=== PATIENT | male | born 1960 | race African-American/Black ===

== ENCOUNTER 2017-12-31 11:29 | Inpatient (IN) | payer MEDICAID ==
[~2017-12-31] VITALS: Ht 182.9 cm; Wt 128.7 kg
[~2017-12-31 11:29] MED LIST: AMLO10TA2 PO; AMLO5TAB2 PO; APIX5TAB PO; ASPI-650 PO; ASPI325T80 PO; FURO-93 PO; FURO20TA3 PO; HYDR-3342 PO; HYDR-3343 PO; ISOS60TA36 PO; METO25TA35 PO
[2017-12-31] MEDS ORDERED: FUROSEMIDE 40 MG/4 ML ONE (11:57)
[2017-12-31] MEDS ORDERED: ASPIRIN 81 MG TABLET CHEW ONE (11:58)
[2017-12-31] MEDS ORDERED: LABETALOL 5MG/ML, 20ML ONE (11:58)
[2017-12-31] MEDS ORDERED: SODIUM CHLORIDE FLUSH 10ML SYR IVF ONE (12:00)
[2017-12-31] MEDS ORDERED: FUROSEMIDE 40 MG/4 ML IV ONE (12:00)
[2017-12-31] MEDS ORDERED: ASPIRIN 81 MG TABLET CHEW PO ONE (12:00)
[2017-12-31] MEDS ORDERED: LABETALOL 5MG/ML, 20ML IVPush ONE (12:00)
[2017-12-31] MEDS ORDERED: NITROGLYCERIN OINT 2%, 1GM TP ONE ×2 (12:00→12:23)
[2017-12-31] MEDS ORDERED: APIXABAN 5 MG TABLET ONE (12:24)
[2017-12-31] MEDS ORDERED: APIXABAN 5 MG TABLET PO ONE (12:30)
[2017-12-31 12:33] LABS: BASOPHILS # (AUTO) 0.02 x10^3/uL (0-0.1); BASOPHILS % (AUTO) 0 % (0-1); EOSINOPHILS % (AUTO) 2 % (1-7); LYMPHOCYTES # (AUTO) 0.49 x10^3/uL (1-3.4); LYMPHOCYTES % (AUTO) 8 % (22-44); MD NO; MEAN CORPUSCULAR HGB CONC 32.4 g/dL (33.2-36.2); MEAN CORPUSCULAR VOLUME 83.6 fL (81-97); MEAN PLATELET VOLUME 10.1 fL (7.4-10.4); MONOCYTES # (AUTO) 0.75 x10^3/uL (0.2-0.8); MONOCYTES % (AUTO) 13 % (2-9); NEUTROPHILS % (AUTO) 77 % (42-75); PLATELET COUNT 217 x10^3/uL (130-400); RED BLOOD COUNT 3.52 x10^6/uL (4.38-5.82); RED CELL DISTRIBUTION WIDTH 15.4 % (9.4-14.8)
[2017-12-31 12:39] LABS: INTERNATIONAL NORMALIZED RATIO 1.23 (0.93-1.1); PROTHROMBIN TIME 12.6 Seconds (9.6-11.5)
[2017-12-31 12:44] LABS: ALANINE AMINOTRANSFERASE 35 U/L (12-78); ALBUMIN 3.4 g/dL (3.4-5.0); ANION GAP 11 mmol/L (5-15); CALCIUM 8.6 mg/dL (8.5-10.1); CHLORIDE 111 mmol/L (98-107)
[2017-12-31 12:49] LABS: ALKALINE PHOSPHATASE 87 U/L (45-117); BILIRUBIN,TOTAL 1.4 mg/dL (0.2-1.0); RED BLOOD COUNT 3.52 x10^6/uL (4.38-5.82); TOTAL PROTEIN 7.4 g/dL (6.4-8.2)
[2017-12-31 12:55] LABS: ABSOLUTE RETICS # 0.06 x10^6/uL (0.5-1.5); RETICULOCYTE COUNT % 1.72 % (0.5-1.5); TROPONIN I 0.188 ng/mL (0.000-0.045)
[2017-12-31] MEDS ORDERED: HEPARIN 5,000 UNITS/ML, 1ML SQ SCH (13:30)
[2017-12-31] MEDS ORDERED: ACETAMINOPHEN 325 MG TABLET PO PRN (13:30)
[2017-12-31] MEDS ORDERED: ONDANSETRON 2MG/ML, 2ML IVPush PRN (13:30)
[2017-12-31 14:05] LABS: TROPONIN I 0.212 ng/mL (0.000-0.045)
[2017-12-31 14:11] VITALS: BP 219/134
[2017-12-31] MEDS ORDERED: CARVEDILOL 6.25 MG TABLET ONE (14:58)
[2017-12-31] MEDS: CARVEDILOL 6.25 MG TABLET PO SCH (15:02)
[2017-12-31] MEDS: ISOSORBIDE DINITRATE 20 MG TABLET PO SCH ×2 (15:02→21:09)
[2017-12-31 15:33] VITALS: BP 198/103
[2017-12-31] MEDS ORDERED: ISOSORBIDE DINITRATE 10 MG TABLET PO SCH (16:00)
[2017-12-31] MEDS ORDERED: LABETALOL 5MG/ML, 20ML IVPush PRN (16:30)
[2017-12-31 17:02] VITALS: BP 182/99
[2017-12-31] MEDS: hydrALAzine 20 MG/ML, 1ML IVPush PRN (17:02)
[2017-12-31 17:39] VITALS: BP 169/73
[2017-12-31 19:33] LABS: TROPONIN I 0.202 ng/mL (0.000-0.045)
[2017-12-31 20:16] VITALS: BP 162/85
[2017-12-31] MEDS: APIXABAN 5 MG TABLET PO SCH (21:09)
[2018-01-01] VITALS (9 sets, daily range): BP systolic 147–180; BP diastolic 74–106
[2018-01-01] MEDS: CARVEDILOL 6.25 MG TABLET PO SCH ×2 (05:17→17:08)
[2018-01-01 05:32] LABS: % IRON SATURATION 4 % (20-55); ANION GAP 12 mmol/L (5-15); CALCIUM 8.5 mg/dL (8.5-10.1); CHLORIDE 113 mmol/L (98-107); CREATININE 6.74 mg/dL (0.7-1.3); IRON LEVEL 14 mcg/dL (65-175); TOTAL IRON BINDING CAPACITY 336 mcg/dL (250-450)
[2018-01-01 05:41] LABS: BASOPHILS # (AUTO) 0.04 x10^3/uL (0-0.1); BASOPHILS % (AUTO) 1 % (0-1); EOSINOPHILS # (AUTO) 0.15 x10^3/uL (0-0.4); EOSINOPHILS % (AUTO) 2 % (1-7); LYMPHOCYTES # (AUTO) 0.45 x10^3/uL (1-3.4); LYMPHOCYTES % (AUTO) 6 % (22-44); MD NO; MEAN CORPUSCULAR HEMOGLOBIN 27.2 pg (27.5-34.5); MEAN CORPUSCULAR HGB CONC 32.4 g/dL (33.2-36.2); MEAN CORPUSCULAR VOLUME 84.1 fL (81-97); MEAN PLATELET VOLUME 9.4 fL (7.4-10.4); MONOCYTES % (AUTO) 12 % (2-9); NEUTROPHILS % (AUTO) 79 % (42-75); PLATELET COUNT 222 x10^3/uL (130-400); RED BLOOD COUNT 3.27 x10^6/uL (4.38-5.82); RED CELL DISTRIBUTION WIDTH 15.3 % (9.4-14.8)
[2018-01-01 05:58] LABS: FOLATE LEVEL 11.3 ng/mL (3.1-17.5)
[2018-01-01] MEDS: hydrALAzine 20 MG/ML, 1ML IVPush PRN (06:20)
[2018-01-01] MEDS: ISOSORBIDE DINITRATE 30 MG TABLET PO SCH ×3 (08:38→21:53)
[2018-01-01] MEDS: APIXABAN 5 MG TABLET PO SCH ×2 (08:38→21:53)
[2018-01-01] MEDS ORDERED: FUROSEMIDE 20 MG TABLET PO SCH (09:00)
[2018-01-01] MEDS ORDERED: FERROUS SULFATE 325 MG TABLET PO SCH (10:30)
[2018-01-02] VITALS (8 sets, daily range): BP systolic 128–200; BP diastolic 69–104
[2018-01-02] MEDS: CARVEDILOL 6.25 MG TABLET PO SCH ×2 (05:21→19:29)
[2018-01-02 08:35] LABS: ANION GAP 7 mmol/L (5-15); CALCIUM 8.4 mg/dL (8.5-10.1); CHLORIDE 112 mmol/L (98-107)
[2018-01-02 08:37] LABS: CREATININE 6.59 mg/dL (0.7-1.3)
[2018-01-02] MEDS ORDERED: ISOSORBIDE DINITRATE 20 MG TABLET PO SCH (09:00)
[2018-01-02] MEDS: APIXABAN 5 MG TABLET PO SCH ×2 (09:00→20:45)
[2018-01-02] MEDS ORDERED: FUROSEMIDE 40 MG TABLET PO SCH (09:00)
[2018-01-02] MEDS: TORSEMIDE 20 MG TABLET PO SCH (10:00)
[2018-01-02 11:29] LABS: MICROSCOPIC AUTO
[2018-01-02 11:33] LABS: CULTURE INDICATED? NO
[2018-01-02] MEDS: IRON SUCROSE COMPLEX 100MG/5ML IV SCH (12:12)
[2018-01-02] MEDS ORDERED: COCAINE TOPICAL SOLN 4%, 4ML TP ONE (18:00)
[2018-01-02] MEDS: AMLODIPINE 5 MG TABLET PO SCH (20:46)
[2018-01-02] MEDS: SODIUM CHLORIDE NASAL SPRAY 45ML BOTTLE NAS SCH (22:41)
[2018-01-02] MEDS: hydrALAzine 20 MG/ML, 1ML IVPush PRN (22:52)
[2018-01-03] VITALS (8 sets, daily range): BP systolic 138–181; BP diastolic 73–107
[2018-01-03 04:59] LABS: ALANINE AMINOTRANSFERASE 23 U/L (12-78); ANION GAP 12 mmol/L (5-15); CALCIUM 8.4 mg/dL (8.5-10.1); CHLORIDE 110 mmol/L (98-107); CREATININE 6.66 mg/dL (0.7-1.3)
[2018-01-03 05:01] LABS: ALKALINE PHOSPHATASE 76 U/L (45-117); BILIRUBIN,TOTAL 0.5 mg/dL (0.2-1.0)
[2018-01-03] MEDS: SODIUM CHLORIDE NASAL SPRAY 45ML BOTTLE NAS SCH ×4 (06:06→20:28)
[2018-01-03] MEDS: CARVEDILOL 6.25 MG TABLET PO SCH ×2 (06:06→17:40)
[2018-01-03 06:15] LABS: MEAN CORPUSCULAR HEMOGLOBIN 27.1 pg (27.5-34.5); MEAN CORPUSCULAR HGB CONC 32.5 g/dL (33.2-36.2); MEAN CORPUSCULAR VOLUME 83.4 fL (81-97); MEAN PLATELET VOLUME 9.7 fL (7.4-10.4); PLATELET COUNT 274 x10^3/uL (130-400); RED BLOOD COUNT 3.47 x10^6/uL (4.38-5.82); RED CELL DISTRIBUTION WIDTH 15.1 % (9.4-14.8)
[2018-01-03 06:18] LABS: MD YES
[2018-01-03 06:20] LABS: BAND#(MANUAL) 0.16 x10^3/uL; BANDS%(MANUAL) 2 % (0-7); BASOS#(MANUAL) 0.16 x10^3/uL (0-0.1); BASOS% (MANUAL) 2 % (0-1); EOS#(MANUAL) 0.55 x10^3/uL (0.0-0.4); EOS% (MANUAL) 7 % (1-7); LYMPH#(MANUAL) 1.11 x10^3/uL (1-3.4); LYMPHS% (MANUAL) 14 % (22-44); MONOS#(MANUAL) 0.55 x10^3/uL (0.3-2.7); MONOS% (MANUAL) 7 % (2-9); SEG#(MANUAL) 5.37 x10^3/uL (1.8-6.8); SEGS% (MANUAL) 68 % (42-75)
[2018-01-03 06:21] LABS: <PLATELET ESTIMATE> ADEQUATE; <PLT MORPHOLOGY> NORMAL PLT MORPH; ANISOCYTOSIS 1+; ECHINOCYTES 1+; OVALOCYTES 1+; SCHISTOCYTES 1+
[2018-01-03 06:25] LABS: POLYCHROMASIA 1+
[2018-01-03] MEDS ORDERED: FUROSEMIDE 40 MG TABLET PO SCH (09:00)
[2018-01-03] MEDS ORDERED: CARVEDILOL 6.25 MG TABLET PO SCH (09:30)
[2018-01-03] MEDS: TORSEMIDE 20 MG TABLET PO SCH (09:54)
[2018-01-03] MEDS: APIXABAN 5 MG TABLET PO SCH ×2 (09:54→20:28)
[2018-01-03] MEDS ORDERED: CARVEDILOL 12.5 MG TABLET PO SCH (18:00)
[2018-01-03] MEDS: AMLODIPINE 5 MG TABLET PO SCH (20:28)
[2018-01-04 03:52] VITALS: BP 155/88
[2018-01-04] MEDS: CARVEDILOL 6.25 MG TABLET PO SCH ×2 (06:07→16:36)
[2018-01-04] MEDS: SODIUM CHLORIDE NASAL SPRAY 45ML BOTTLE NAS SCH ×4 (06:07→21:39)
[2018-01-04 07:44] VITALS: BP 153/59
[2018-01-04] MEDS: IRON SUCROSE COMPLEX 100MG/5ML IV SCH (08:49)
[2018-01-04] MEDS: TORSEMIDE 20 MG TABLET PO SCH (08:50)
[2018-01-04] MEDS: APIXABAN 5 MG TABLET PO SCH ×2 (08:50→21:40)
[2018-01-04 09:06] LABS: BASOPHILS # (AUTO) 0.01 x10^3/uL (0-0.1); BASOPHILS % (AUTO) 0 % (0-1); EOSINOPHILS # (AUTO) 0.25 x10^3/uL (0-0.4); EOSINOPHILS % (AUTO) 4 % (1-7); LYMPHOCYTES % (AUTO) 6 % (22-44); MD NO; MEAN CORPUSCULAR HEMOGLOBIN 26.7 pg (27.5-34.5); MEAN CORPUSCULAR HGB CONC 32.1 g/dL (33.2-36.2); MEAN CORPUSCULAR VOLUME 83.3 fL (81-97); MEAN PLATELET VOLUME 9.5 fL (7.4-10.4); MONOCYTES # (AUTO) 1.03 x10^3/uL (0.2-0.8); MONOCYTES % (AUTO) 16 % (2-9); NEUTROPHILS # (AUTO) 4.64 x10^3/uL (1.8-6.8); NEUTROPHILS % (AUTO) 73 % (42-75); PLATELET COUNT 245 x10^3/uL (130-400); RED BLOOD COUNT 3.35 x10^6/uL (4.38-5.82); RED CELL DISTRIBUTION WIDTH 15.9 % (9.4-14.8)
[2018-01-04 09:15] LABS: ALANINE AMINOTRANSFERASE 20 U/L (12-78); ALBUMIN 2.7 g/dL (3.4-5.0); ANION GAP 12 mmol/L (5-15); CALCIUM 8.5 mg/dL (8.5-10.1); CHLORIDE 110 mmol/L (98-107); CREATININE 6.74 mg/dL (0.7-1.3)
[2018-01-04 09:18] LABS: ALKALINE PHOSPHATASE 67 U/L (45-117); BILIRUBIN,TOTAL 0.5 mg/dL (0.2-1.0); TOTAL PROTEIN 6.5 g/dL (6.4-8.2)
[2018-01-04 12:27] VITALS: BP 148/77
[2018-01-04 16:33] VITALS: BP 175/99
[2018-01-04 19:58] VITALS: BP 136/83
[2018-01-04] MEDS: AMLODIPINE 5 MG TABLET PO SCH (21:39)
[2018-01-05 01:22] VITALS: BP 155/77
[2018-01-05] MEDS: SODIUM CHLORIDE NASAL SPRAY 45ML BOTTLE NAS SCH ×2 (06:23→12:02)
[2018-01-05] MEDS: CARVEDILOL 6.25 MG TABLET PO SCH (06:24)
[2018-01-05 07:54] VITALS: BP 153/83
[2018-01-05] MEDS: TORSEMIDE 20 MG TABLET PO SCH (08:53)
[2018-01-05] MEDS: APIXABAN 5 MG TABLET PO SCH (08:54)
[2018-01-05] MEDS ORDERED: HYDR-3343 PO (13:09)
[2018-01-05] MEDS ORDERED: TORS20TA PO (13:09)
[2018-01-05 14:01] VITALS: BP 152/90
== END 2018-01-05 14:56 | disposition home or self-care (01) | DRG 291 ==
LOC: ED 12:41 → EDIP 12:42 → ED 13:11 → 5SO 13:48 → DCLOUNGE 01-05 14:39
PROVIDERS: ADMIT Internal Medicine Pulmonary Disease; ATTEND Internal Medicine Pulmonary Disease
PROC: 2Y41X5Z Packing of Nasal Region using Packing Material (ICD-10-PCS; principal; 2018-01-02)
DX: I13.2 Hypertensive heart and chronic kidney disease with heart failure and with stage 5 chronic kidney disease, or end stage renal disease (principal); E43 Unspecified severe protein-calorie malnutrition; N17.9 Acute kidney failure, unspecified; D68.59 Other primary thrombophilia; E66.01 Morbid (severe) obesity due to excess calories; I48.92 Unspecified atrial flutter; N18.6 End stage renal disease; I48.91 Unspecified atrial fibrillation; I50.33 Acute on chronic diastolic (congestive) heart failure; J44.1 Chronic obstructive pulmonary disease with (acute) exacerbation; D50.9 Iron deficiency anemia, unspecified; G47.00 Insomnia, unspecified; R04.0 Epistaxis; R06.09 Other forms of dyspnea; R00.1 Bradycardia, unspecified; Z68.38 Body mass index [BMI] 38.0-38.9, adult; Z79.82 Long term (current) use of aspirin; Z83.3 Family history of diabetes mellitus; Z91.14 Patient's other noncompliance with medication regimen
CPT/HCPCS: 36415; 71045; 76770; 80048; 80053; 80074; 81001; 82043; 82274; 82306; 82570; 82607; 82728; 82746; 83036; 83540; 83550; 83735; 83880; 83883; 83970; 84100; 84155; 84156; 84165; 84166; 84443; 84484; 84550; 85025; 85045; 85610; 86480; 93005; 93306; 93922; 93970; 96374; 96375; J1756; J1940; J0360